=== PATIENT | male | born 1960 | race Caucasian/White ===

== ENCOUNTER 2018-11-21 05:32 | Day surgery (SDC) | payer BC, MEDICARE ==
[2018-11-16 13:50] VITALS: BMI 25.4
[~2018-11-21 05:32] MED LIST: DEXAMETHASONE SOD PHOSPHATE 10 MG/ML 1 ML VIAL IV ONE; LIDOCAINE 1% 20 ML VIAL (10MG/ML) FOR IV START INTRADERMA PRN; MIDAZOLAM 2 MG/2 ML VIAL IV PRN; ONDANSETRON 4 MG/2 ML VIAL IVP ONE; SCOPOLAMINE 1.5MG/72HR PATCH TRANSDERM ONE
[2018-11-21] MEDS: LACTATED RINGERS 1,000 ML IV SCH (06:30)
[2018-11-21] MEDS ORDERED: LIDOCAINE 1% 20 ML VIAL (10MG/ML) FOR IV START INTRADERMA ONE (06:30)
[2018-11-21 06:37] LABS: Basophils # (A) 0.1 k/uL (0-0.2); Basophils % (A) 1 %; Eosinophils # (A) 0.5 k/uL (0-0.7); Eosinophils % (A) 5 %; HCT 42.3 % (39.0-53.0); HGB 14.8 gm/dL (13.0-17.5); Lymphocytes # (A) 1.7 k/uL (1.0-4.8); Lymphocytes % (A) 18 %; MCH 30.1 pg (25.0-35.0); MCHC 34.9 g/dL (31.0-37.0); MCV 86.4 fL (80.0-100.0); Monocytes # (A) 0.5 k/uL (0-1.0); Monocytes % (A) 6 %; Neutrophils # (A) 6.4 k/uL (1.3-7.7); Neutrophils % (A) 70 %; Platelet Count 196 k/uL (150-450); RDW 13.7 % (11.5-15.5); WBC 9.2 k/uL (3.8-10.6)
[2018-11-21] MEDS ORDERED: fentaNYL (PF) 50 MCG/ML 2 ML AMP IV ONE (07:10)
[2018-11-21] MEDS ORDERED: HEPARIN SODIUM,PORCINE 5,000 UNIT/ML 1 ML VIAL SQ ONE (07:45)
[2018-11-21] MEDS ORDERED: ePHEDrine SULFATE/0.9% NACL/PF 50 MG/5 ML SYRINGE IV ONE (07:48)
[2018-11-21] MEDS ORDERED: LIDOCAINE 1% INJ 10MG/ML (20 ML MDV) ONE (07:48)
[2018-11-21] MEDS ORDERED: ROPIVACAINE 5 MG/ML 30 ML VIAL ONE (07:48)
[2018-11-21] MEDS ORDERED: NEOSTIGMINE 1 MG/ML 10 ML VIAL ONE (07:48)
[2018-11-21] MEDS ORDERED: DEXAMETHASONE SOD PHOS (MDV) 100 MG/10 ML VIAL ONE (07:48)
[2018-11-21] MEDS ORDERED: PROPOFOL 10 MG/ML 20 ML VIAL IV ONE (07:48)
[2018-11-21] MEDS ORDERED: fentaNYL (PF) 50 MCG/ML 2 ML AMP ONE (07:48)
[2018-11-21] MEDS ORDERED: ROCURONIUM BROMIDE 10 MG/ML 10 ML VIAL IV ONE (07:48)
[2018-11-21] MEDS ORDERED: GLYCOPYRROLATE 0.2 MG/ML 2 ML VIAL ONE (07:48)
--- NOTE | 2018-11-21 07:50 | P.GSHP ---
History of Present Illness H&P Date: 11/21/18 Chief Complaint: Umbilical hernia, left inguinal hernia This is a 58-year-old male who presents today for laparoscopic robotic-assisted repair of umbilical hernia and left inguinal hernia. Patient developed a tender mass of the umbilicus and left groin. Past Medical History Past Medical History: Hypertension, Myocardial Infarction (NM), Osteoarthritis (OA) Additional Past Medical History / Comment(s): [employer] PACEMAKER, KIDNEY STONE., BLIND LEFT EYE., UMBILICAL AND INGUINAL HERNIA. Last Myocardial Infarction Date:: 2006 History of Any Multi-Drug Resistant Organisms: None Reported Past Surgical History: Pacemaker Additional Past Surgical History / Comment(s): LITHOTRIPSY, LEFT ANKLE SURGERY (CHILD), LEFT EYE MUSCLE SURGERY, RIGHT EYE METAL REMOVED , PACEMAKER MEDTRONIC 2004 OR 2005 AND BATTERY CHANGE JULY 2017 ([facility]) Past Anesthesia/Blood Transfusion Reactions: No Reported Reaction Type of Cardiac Device: Permanent Pacemaker Device Placement Date:: 2004 OR 2005 Past Psychological History: No Psychological Hx Reported Smoking Status: Former smoker Past Alcohol Use History: Rare Additional Past Alcohol Use History / Comment(s): QUIT SMOKING 2006, SMOKED 3/4 PPD., STARTED SMOKING AGE 27. Past Drug Use History: None Reported - Past Family History Mother Family Medical History: No Reported History Medications and Allergies Home Medications Medication Instructions Recorded Confirmed Type Aspirin EC [Ecotrin Low Dose] 81 mg PO DAILY 11/16/18 11/21/18 History Atorvastatin [Lipitor] 20 mg PO DAILY 11/16/18 11/21/18 History Co Q 10 1 tab PO DAILY 11/16/18 11/21/18 History Lisinopril [Zestril] 10 mg PO DAILY 11/16/18 11/21/18 History Metoprolol Tartrate [Lopressor] 50 mg PO DAILY 11/16/18 11/21/18 History Allergies Allergy/AdvReac Type Severity Reaction Status Date / Time adhesive tape AdvReac Unknown Rash/Hives Verified 11/21/18 06:16 Surgical - Exam Vital Signs Temp Pulse Resp BP Pulse Ox 97.6 F 67 16 116/85 96 11/21/18 06:17 11/21/18 06:17 11/21/18 06:17 11/21/18 06:17 11/21/18 06:17 - General well developed, well nourished, no distress - Eyes PERRL - ENT normal pinna - Neck no masses - Respiratory normal expansion - Cardiovascular Rhythm: regular - Abdomen Abdomen: soft, non tender Hernia: inguinal (Left inguinal), umbilical (2 cm) Results - Labs 11/21/18 06:30 Assessment and Plan Assessment: Umbilical, left internal hernia. We'll perform laparoscopic robotic system repair.
[2018-11-21] MEDS ORDERED: BUPIVACAINE (PF) 0.25% 30 ML VIAL SQ ONE (08:21)
[2018-11-21 09:23] VITALS: TEMP 97.1
[2018-11-21] MEDS: HYDROmorphone 0.5 MG/0.5 ML SYRINGE IVP PRN ×4 (09:27→09:58)
--- NOTE | 2018-11-21 09:30 | P.ANPRN ---
Procedure Note - Anesthesia - Nerve Block Performed Bilateral Transversus Abdominis Single Time Out Performed: Yes Date of Procedure: 11/21/18 Procedure Start Time: 07:11 Procedure Stop Time: :21 Location of Patient Procedure: PreOp Indication: Acute Post-Operative Pain, Requested by Surgeon Sedation Type: Sedate with meaningful contact maintained Preparation: Sterile Prep Position: Supine Catheter: None Needle Types: Pajunk Needle Gauge: 21 Ultrasound used to visualize needle placement: Yes Ultrasound used to observe medication spread: Yes Injectate: 0.5% Ropivacaine (see comment for volume) (15 cc + 2mg dexamethasone per side) Blood Aspirated: No Pain Paresthesia on Injection Noted: No Resistance on Injection: Normal Image Stored and Saved: Yes Events: Uneventful and Well Tolerated
[2018-11-21 10:29] VITALS: RESP 18
[2018-11-21] MEDS ORDERED: HYDROcodone/APAP 5-325MG 1 EACH TAB PO ONE (10:38)
[2018-11-21 11:54] VITALS: BP 128/77; PULSE 77
--- NOTE | 2018-11-24 08:57 | P.OP ---
Date of Procedure: 11/21/18 Preoperative Diagnosis: Left inguinal hernia Umbilical hernia Postoperative Diagnosis: Left internal hernia Umbilical hernia Procedure(s) Performed: Laparoscopic robotic system repair of left inguinal hernia and umbilical hernia Anesthesia: SHAMIKA Surgeon: Torey Ortega Estimated Blood Loss (ml): 5 Pathology: none sent Condition: stable Disposition: PACU Description of Procedure: MThe patient's placed on the operating table in the supine position. The addison ent received general anesthesia. The patient's abdomen was prepped and draped in usual sterile fashion. The skin was anesthetized 1% local Xylocaine at the incision sites. Using an 11 blade a skin incision was made at the umbilicus. The fascia was grasped with a Mj and then the peritoneal cavity was entered with the Veress needle. Position of the Veress needle was confirmed with a positive drop test. After adequate insufflation a 5 mm trocar was placed into the peritoneal cavity. The Laparoscope was placed the peritoneal cavity. And a robotic 8 mm trocar was placed in the right lateral position and then another 8 mm robotic trochars placed in the left lateral position. The original 5 mm trocar was exchanged for a 12 mm trocar. The patient was placed in reverse Trendelenburg and then the patient was docked to the robot. Next the peritoneum over top of the hernia was incised and then using blunt and sharp dissection and electrocautery the hernia sac was dissected free from the floor of the inguinal canal. The hernia sac was completely reduced into the peritoneal cavity. And then using the Pro industrial health engineer mesh the hernia was repaired. The peritoneum was then sutured with 20V lock suture. The patient was then undocked the robot. The needle was withdrawn from the peritoneal cavity. The umbilical hernia site was closed with 0 Ethibond suture. The suture was placed with the Jean Marie Hernandez laparoscopic suture passer. The trochars withdrawn. The skin was closed interrupted 3-0 Monocryl suture. Dermabond dressing was applied. Patient was sent to recovery in stable condition.
== END 2018-11-21 11:50 | disposition home or self-care (01) ==
LOC: OR 05:32
PROVIDERS: ATTEND Surgery
DX: K40.30 Unilateral inguinal hernia, with obstruction, without gangrene, not specified as recurrent (principal); K42.9 Umbilical hernia without obstruction or gangrene; I10 Essential (primary) hypertension; I25.2 Old myocardial infarction; M19.90 Unspecified osteoarthritis, unspecified site; H54.62 Unqualified visual loss, left eye, normal vision right eye; E78.5 Hyperlipidemia, unspecified; Z95.0 Presence of cardiac pacemaker; Z87.442 Personal history of urinary calculi; Z87.891 Personal history of nicotine dependence; Z91.048 Other nonmedicinal substance allergy status; Z79.82 Long term (current) use of aspirin; Z79.899 Other long term (current) drug therapy
CPT/HCPCS: 49650; 64488; 85025; 88302; C1781; J2250; J1644; J1100 ×2; J2710; J0690; J2405; J2001; J3010; J2795; J2704; J1170

== ENCOUNTER 2020-11-19 08:23 | Day surgery (SDC) | payer BC, MEDICARE ==
[2020-11-17 15:30] VITALS: BMI 24.4
[~2020-11-19 08:23] MED LIST changes: +ACETAMINOPHEN TAB 500 MG TAB PO PRN; -DEXAMETHASONE SOD PHOSPHATE 10 MG/ML 1 ML VIAL IV ONE; +HEPARIN SODIUM,PORCINE/PF 5,000 UNIT/0.5 ML SYRINGE SQ PRN; -LIDOCAINE 1% 20 ML VIAL (10MG/ML) FOR IV START INTRADERMA PRN; -MIDAZOLAM 2 MG/2 ML VIAL IV PRN; -ONDANSETRON 4 MG/2 ML VIAL IVP ONE; -SCOPOLAMINE 1.5MG/72HR PATCH TRANSDERM ONE
[2020-11-19] MEDS ORDERED: LACTATED RINGERS 1,000 ML IV SCH (09:17)
[2020-11-19] MEDS ORDERED: ONDANSETRON 4 MG/2 ML VIAL IVP ONE (09:17)
[2020-11-19] MEDS ORDERED: SCOPOLAMINE 1.5MG/72HR PATCH TRANSDERM ONE (09:17)
[2020-11-19] MEDS ORDERED: HYDROmorphone 0.5 MG/0.5 ML SYRINGE IVP PRN (09:17)
[2020-11-19] MEDS ORDERED: DEXAMETHASONE SOD PHOSPHATE 4 MG/ML 1 ML VIAL IV ONE (09:17)
[2020-11-19] MEDS ORDERED: LIDOCAINE 1% (10MG/ML) FOR IV START INTRADERMA PRN (09:17)
--- NOTE | 2020-11-19 10:07 | P.GSHP ---
History of Present Illness H&P Date: 11/19/20 Chief Complaint: Right inguinal hernia recurrent This is a 60-year-old male who's of a recurrent right inguinal hernia. Patient underwent laparoscopic repair several years ago. He developed a tender mass in his right groin. He presents today for open repair of recurrent right inguinal hernia Past Medical History Past Medical History: Hyperlipidemia, Hypertension, Myocardial Infarction ([place]), Osteoarthritis (OA) Additional Past Medical History / Comment(s): [employer] PACEMAKER, KIDNEY STONE., BLIND LEFT EYE., UMBILICAL AND INGUINAL HERNIA. Last Myocardial Infarction Date:: 2006 History of Any Multi-Drug Resistant Organisms: None Reported Past Surgical History: Hernia Repair, Pacemaker Additional Past Surgical History / Comment(s): LITHOTRIPSY, LEFT ANKLE SURGERY (CHILD), LEFT EYE MUSCLE SURGERY, RIGHT EYE METAL REMOVED , PACEMAKER [employer]TRONIC 2004 OR 2005 AND BATTERY CHANGE JULY 2017 ([facility]), Hernia surgery by Dr. Ortega 2 years ago. Past Anesthesia/Blood Transfusion Reactions: No Reported Reaction Type of Cardiac Device: Permanent Pacemaker Device Placement Date:: 2004 OR 2005 Smoking Status: Former smoker - Past Family History Mother Family Medical History: No Reported History Medications and Allergies Home Medications Medication Instructions Recorded Confirmed Type Aspirin EC [Ecotrin Low Dose] 81 mg PO DAILY 11/16/18 11/17/20 History Atorvastatin [Lipitor] 20 mg PO DAILY 11/16/18 11/19/20 History Co Q 10 1 tab PO DAILY 11/16/18 11/17/20 History lisinopriL [Zestril] 10 mg PO DAILY 11/16/18 11/19/20 History Allergies Allergy/AdvReac Type Severity Reaction Status Date / Time adhesive tape AdvReac Unknown Rash/Hives Verified 11/19/20 09:19 Surgical - Exam Vital Signs Temp Pulse Resp BP Pulse Ox 96.9 F L 70 16 117/77 99 11/19/20 09:20 11/19/20 09:20 11/19/20 09:20 11/19/20 09:20 11/19/20 09:20 - General well developed, well nourished, no distress - Eyes PERRL - ENT normal pinna - Neck no masses - Respiratory normal expansion - Cardiovascular Rhythm: regular - Abdomen Recurrent right inguinal hernia Abdomen: soft, non tender Assessment and Plan Assessment: Right inguinal hernia. We'll perform open repair.
[2020-11-19] MEDS ORDERED: MIDAZOLAM 2 MG/2 ML VIAL IVP ONE (10:20)
--- NOTE | 2020-11-19 11:03 | P.ANPRN ---
Procedure Note - Anesthesia - Nerve Block Performed Right Erector Spinae Single Time Out Performed: Yes (1019) Date of Procedure: 11/19/20 Procedure Start Time: : Procedure Stop Time: Location of Patient: PreOp Indication: Acute Post-Operative Pain, Requested by Surgeon Specifically requested for management of pain by DrEdie: Torey Ortega Sedation Type: Sedate with meaningful contact maintained Preparation: Sterile Prep Position: Supine Catheter: None Needle Types: Pajunk Needle Gauge: 21 Ultrasound used to visualize needle placement: Yes Ultrasound used to observe medication spread: Yes Injectate: 0.5% Ropivacaine (see comment for volume) (30cc) Blood Aspirated: No Pain Paresthesia on Injection Noted: No Resistance on Injection: Normal Image Stored and Saved: Yes Events: Uneventful and Well Tolerated
[2020-11-19] MEDS ORDERED: PROPOFOL 10 MG/ML 20 ML VIAL IV ONE (11:24)
[2020-11-19] MEDS ORDERED: SUCCINYLCHOLINE CHLORIDE 100 MG/5 ML SYR IV ONE (11:24)
[2020-11-19] MEDS ORDERED: fentaNYL (PF) 50 MCG/ML 2 ML AMP ONE (11:24)
[2020-11-19] MEDS ORDERED: MIDAZOLAM 2 MG/2 ML VIAL ONE (11:24)
[2020-11-19] MEDS ORDERED: ROPIVACAINE 5 MG/ML 30 ML VIAL ONE (11:24)
[2020-11-19] MEDS ORDERED: NALOXONE 0.4 MG/ML 1 ML VIAL ONE (11:24)
[2020-11-19] MEDS ORDERED: KETOROLAC 15 MG/ML 1 ML VIAL ONE (11:24)
[2020-11-19] MEDS ORDERED: BUPIVACAINE (PF) 0.25% 30 ML VIAL SQ ONE ×2 (11:52→12:02)
[2020-11-19] MEDS ORDERED: LACTATED RINGERS 1,000 ML IV ONE (11:56)
--- NOTE | 2020-11-19 12:16 | P.OP ---
Date of Procedure: 11/19/20 Preoperative Diagnosis: Recurrent right inguinal hernia Postoperative Diagnosis: Recurrent right inguinal hernia Procedure(s) Performed: Repair of right inguinal hernia Anesthesia: SHAMIKA Surgeon: Torey Ortega Estimated Blood Loss (ml): 5 Pathology: none sent Condition: stable Disposition: PACU Description of Procedure: DESCRIPTION OF PROCEDURE: The patient was placed in the supine position after receiving adequate anesthesia. Patients groin was prepped and draped in the usual sterile fashion. A standard hernia incision was made and the subcutaneous tissues were divided with electrocautery. The fascia of the external oblique was exposed. A enrike the fascia was made with #15 blade. The fascia was then opened with pair of Metzenbaum scissors. A Weitlaner retractor was placed in the wound and the cord structures were grasped and dissected free from the inguinal canal. A rubber Lignite drain was placed around the cord structures. The hernial sac was seen on the anterior-medial portion of the cord and this was dissected free from the cord. The hernia sac was then invaginated to the peritoneal cavity. Using blunt finger dissection, the preperitoneal space was dissected and then the Prolene hernial mesh plug was placed into the prepared space. The inferior leaf was expanded. The superior leaf was secured to the pubic tubercle using 2-0 Prolene suture. The lateral portion of the superior leaf was incised and cords tied and secured to the transversalis fascia using 2-0 Prolene suture. Fascia of the external oblique was then closed using #0 Vicryl suture. The Laith drain was removed. The Scarpas fascia was then closed with 3-0 Vicryl suture and skin was closed with shefali. The patient tolerated the procedure well.
[2020-11-19 12:43] VITALS: TEMP 98
[2020-11-19 13:46] VITALS: BP 150/78; PULSE 70; RESP 18
== END 2020-11-19 14:00 | disposition home or self-care (01) ==
LOC: OR 08:23
PROVIDERS: ATTEND Surgery
DX: K40.91 Unilateral inguinal hernia, without obstruction or gangrene, recurrent (principal); I25.2 Old myocardial infarction; I10 Essential (primary) hypertension; E78.5 Hyperlipidemia, unspecified; Z95.0 Presence of cardiac pacemaker; K21.9 Gastro-esophageal reflux disease without esophagitis; H54.62 Unqualified visual loss, left eye, normal vision right eye; M19.90 Unspecified osteoarthritis, unspecified site; Z79.82 Long term (current) use of aspirin; Z79.890 Hormone replacement therapy; Z87.442 Personal history of urinary calculi; Z87.891 Personal history of nicotine dependence
CPT/HCPCS: 49520; 64999; J2250; J1100; J0690; J2405; J1644